=== PATIENT | female | born 1940 | race Asian ===

== ENCOUNTER 2016-10-04 08:41 | Outpatient (CLI) | payer OTHER ==
[~2016-10-04 08:41] MED LIST: CLONIDINE0.2 MG PO; COZAAR100 MG PO; FOLI1TAB26 PO; FURO40TA93 PO; GLIM4TAB PO; GLUCOPHAGE1000 MG PO; LABE200T31 PO; LASIX40 MG PO; LOSARTAN POT100 MG PO; METF100038 OR; MICRO-K10 MEQ PO; PLAVIX75 MG PO; SIMV40TA57 PO; ZOCOR40 MG PO
[2016-10-04 09:26] LABS: PLATELET COUNT 152 K/uL (152-353)
[2016-10-04 10:11] LABS: POTASSIUM 3.6 mmol/L (3.6-5.2)
== END 2016-10-04 19:36 | disposition home or self-care (01) ==
LOC: LABW 08:41
PROVIDERS: Internal Medicine Nephrology
DX: I12.9 Hypertensive chronic kidney disease with stage 1 through stage 4 chronic kidney disease, or unspecified chronic kidney disease (principal); N18.4 Chronic kidney disease, stage 4 (severe); E55.9 Vitamin D deficiency, unspecified
CPT/HCPCS: 36415; 80053; 81000; 82306; 82570; 83970; 84100; 84155; 85027

== ENCOUNTER 2016-10-30 09:47 | Outpatient (CLI) | payer OTHER | END 2016-10-30 19:24 | disposition home or self-care (01) | LOC: MAMMO 09:47 | DX: Z12.31 Encounter for screening mammogram for malignant neoplasm of breast (principal) | CPT/HCPCS: G0202-TC ==

== ENCOUNTER 2016-11-01 09:17 | Outpatient (CLI) | payer OTHER ==
[2016-11-01 09:35] LABS: POTASSIUM 3.2 mmol/L (3.6-5.2)
== END 2016-11-01 19:04 | disposition home or self-care (01) ==
LOC: LABW 09:17
PROVIDERS: Internal Medicine Nephrology
DX: N17.8 Other acute kidney failure (principal)
CPT/HCPCS: 36415; 80048

== ENCOUNTER 2016-11-10 13:34 | Outpatient (CLI) | payer OTHER | END 2016-11-10 19:12 | disposition home or self-care (01) | LOC: RAD 13:34 | DX: M79.604 Pain in right leg (principal) ==

== ENCOUNTER 2017-02-07 10:28 | Outpatient (CLI) | payer OTHER | END 2017-02-07 12:00 | disposition home or self-care (01) | LOC: US 10:28 | DX: M79.605 Pain in left leg (principal); M79.604 Pain in right leg ==

== ENCOUNTER 2017-02-08 09:20 | Outpatient (CLI) | payer OTHER ==
[2017-02-08 10:52] LABS: PLATELET COUNT 140 K/uL (152-353)
== END 2017-02-08 10:20 | disposition home or self-care (01) ==
LOC: LABW 09:20
PROVIDERS: Internal Medicine
DX: E11.9 Type 2 diabetes mellitus without complications (principal)
CPT/HCPCS: 36415; 80048; 80061; 80076; 81000; 82043; 82570; 83036; 84100; 84443; 85027

== ENCOUNTER 2017-04-05 09:57 | Outpatient (CLI) | payer OTHER ==
[2017-04-05 10:21] LABS: PLATELET COUNT 175 K/uL (152-353)
[2017-04-05 10:54] LABS: POTASSIUM 3.6 mmol/L (3.6-5.2)
== END 2017-04-05 21:53 | disposition home or self-care (01) ==
LOC: LABW 09:57
PROVIDERS: Internal Medicine Nephrology
DX: I12.9 Hypertensive chronic kidney disease with stage 1 through stage 4 chronic kidney disease, or unspecified chronic kidney disease (principal); N18.4 Chronic kidney disease, stage 4 (severe); E55.9 Vitamin D deficiency, unspecified
CPT/HCPCS: 36415; 80053; 81000; 82306; 82570; 83970; 84100; 84155; 85027

== ENCOUNTER 2017-09-26 09:52 | Outpatient (CLI) | payer OTHER ==
[2017-09-26 10:28] LABS: PLATELET COUNT 164 K/uL (152-353)
[2017-09-26 10:46] LABS: POTASSIUM 3.3 mmol/L (3.6-5.2)
== END 2017-09-27 09:52 | disposition home or self-care (01) ==
LOC: LABW 09:52
PROVIDERS: Internal Medicine Nephrology
DX: N18.4 Chronic kidney disease, stage 4 (severe) (principal); E11.9 Type 2 diabetes mellitus without complications; E55.9 Vitamin D deficiency, unspecified
CPT/HCPCS: 36415; 80053; 81000; 82570; 82652; 83970; 84100; 84155; 85027

== ENCOUNTER 2017-10-25 09:14 | Outpatient (CLI) | payer OTHER ==
[2017-10-25 09:50] LABS: PLATELET COUNT 151 K/uL (152-353)
[2017-10-25 10:19] LABS: POTASSIUM 3.6 mmol/L (3.6-5.2)
== END 2017-10-25 19:28 | disposition home or self-care (01) ==
LOC: LABW 09:14
PROVIDERS: Internal Medicine
DX: E11.9 Type 2 diabetes mellitus without complications (principal)
CPT/HCPCS: 36415; 80053; 80061; 81000; 82043; 82570; 83036; 84439; 84443; 85027

== ENCOUNTER 2017-11-01 08:52 | Outpatient (CLI) | payer OTHER | END 2017-11-01 22:04 | disposition home or self-care (01) | LOC: MAMMO 08:52 | DX: Z12.31 Encounter for screening mammogram for malignant neoplasm of breast (principal) ==

== ENCOUNTER 2018-01-21 09:12 | Outpatient (CLI) | payer OTHER ==
[2018-01-21 09:36] LABS: PLATELET COUNT 150 K/uL (152-353)
[2018-01-21 09:55] LABS: POTASSIUM 3.7 mmol/L (3.6-5.2)
== END 2018-01-21 20:15 | disposition home or self-care (01) ==
LOC: LABW 09:12
PROVIDERS: Internal Medicine Nephrology
DX: N18.4 Chronic kidney disease, stage 4 (severe) (principal); E11.9 Type 2 diabetes mellitus without complications; E55.9 Vitamin D deficiency, unspecified
CPT/HCPCS: 36415; 80053; 81000; 82570; 82652; 83970; 84100; 84155; 85027

== ENCOUNTER 2018-04-26 09:36 | Outpatient (CLI) | payer OTHER ==
[2018-04-26 10:00] LABS: PLATELET COUNT 151 K/uL (152-353)
[2018-04-26 11:41] LABS: POTASSIUM 3.5 mmol/L (3.6-5.2)
== END 2018-04-26 19:21 | disposition home or self-care (01) ==
LOC: LABW 09:36
PROVIDERS: Internal Medicine Nephrology
DX: Z01.818 Encounter for other preprocedural examination (principal); N18.4 Chronic kidney disease, stage 4 (severe); E11.9 Type 2 diabetes mellitus without complications; E55.9 Vitamin D deficiency, unspecified
CPT/HCPCS: 36415; 80053; 81000; 82043; 82306; 82570; 83970; 84100; 85027

== ENCOUNTER 2018-06-03 09:08 | Outpatient (CLI) | payer OTHER ==
[2018-06-03 09:50] LABS: PLATELET COUNT 148 K/uL (152-353)
[2018-06-03 09:56] LABS: POTASSIUM 3.2 mmol/L (3.6-5.2)
== END 2018-06-03 19:42 | disposition home or self-care (01) ==
LOC: LABW 09:08
PROVIDERS: Internal Medicine Nephrology
DX: N18.4 Chronic kidney disease, stage 4 (severe) (principal); E11.9 Type 2 diabetes mellitus without complications; E55.9 Vitamin D deficiency, unspecified
CPT/HCPCS: 36415; 80053; 81000; 82570; 82652; 83970; 84100; 84155; 85027

== ENCOUNTER 2018-09-03 11:33 | Outpatient (CLI) | payer OTHER, MEDICARE | END 2018-09-03 23:15 | disposition home or self-care (01) | LOC: RAD 11:33 | DX: M25.552 Pain in left hip (principal); M54.2 Cervicalgia; M54.5 Low back pain ==

== ENCOUNTER 2018-09-19 12:21 | Emergency (ER) | payer OTHER ==
[~2018-09-19] VITALS: Ht 165.1 cm; Wt 76.2 kg
[2018-09-19 12:53] LABS: PLATELET COUNT 165 K/uL (152-353)
[2018-09-19 13:00] LABS: POTASSIUM 4.6 mmol/L (3.6-5.2); SODIUM 138 mmol/L (136-145)
[2018-09-19] MEDS ORDERED: CLONIDINE0.3 MG PO (15:34)
[2018-09-19] MEDS ORDERED: FURO40TA93 PO (15:35)
[2018-09-19] MEDS ORDERED: K-TAB10 MEQ PO (15:36)
[2018-09-19] MEDS ORDERED: AMLODIPINE BESYLATE PO (15:36)
[2018-09-19] MEDS ORDERED: LABETALOL200 MG PO (15:37)
[2018-09-19] MEDS ORDERED: CLOP75TA2 PO (15:37)
[2018-09-19] MEDS ORDERED: MELOXICAM7.5 MG PO (15:38)
[2018-09-19] MEDS ORDERED: CYCLOBENZAPRINE5 MG PO (15:38)
[2018-09-19] MEDS ORDERED: SIMV40TA57 (15:38)
[2018-09-19] MEDS ORDERED: NEURONTIN 100M100 MG PO (15:39)
[2018-09-19] MEDS ORDERED: GLIM4TAB PO (15:39)
[2018-09-19] MEDS ORDERED: ASPIR-8181 MG PO (15:41)
[2018-09-19 16:38] VITALS: BP 167/86; TEMP 97.9
== END 2018-09-19 16:38 | disposition short-term general hospital (02) ==
LOC: ED 12:21
PROVIDERS: Family Medicine
DX: R07.89 Other chest pain (principal); I44.7 Left bundle-branch block, unspecified
CPT/HCPCS: 36415; 80053; 81000; 82550; 82553; 83880; 84484; 85027; 93005; 99284

== ENCOUNTER 2018-09-19 16:47 | Outpatient (CLI) | payer OTHER ==
[~2018-09-19 16:47] MED LIST changes: +AMLODIPINE BESYLATE PO; +ASPIR-8181 MG PO; +CLONIDINE0.3 MG PO; +CLOP75TA2 PO; +CYCLOBENZAPRINE5 MG PO; +K-TAB10 MEQ PO; +LABETALOL200 MG PO; +MELOXICAM7.5 MG PO; +NEURONTIN 100M100 MG PO; +SIMV40TA57
== END 2018-09-19 17:26 | disposition short-term general hospital (02) ==
LOC: AMB 16:47
DX: R07.89 Other chest pain (principal); I44.7 Left bundle-branch block, unspecified
CPT/HCPCS: A0425; A0429

== ENCOUNTER 2019-01-13 08:19 | Outpatient (CLI) | payer OTHER ==
[2019-01-13 08:46] LABS: PLATELET COUNT 174 K/uL (152-353)
[2019-01-13 09:05] LABS: POTASSIUM 3.1 mmol/L (3.6-5.2)
== END 2019-01-13 23:34 | disposition home or self-care (01) ==
LOC: LABW 08:19
PROVIDERS: Internal Medicine Nephrology
DX: E11.9 Type 2 diabetes mellitus without complications (principal); G35 Multiple sclerosis; I63.9 Cerebral infarction, unspecified; M19.90 Unspecified osteoarthritis, unspecified site; N18.3 Chronic kidney disease, stage 3 (moderate); D63.1 Anemia in chronic kidney disease
CPT/HCPCS: 36415; 80053; 80061; 81000; 82306; 82570; 82607; 82728; 82746; 83540; 83550; 83970; 84100; 84155; 85027

== ENCOUNTER 2019-03-14 09:25 | Outpatient (CLI) | payer OTHER | END 2019-03-14 21:46 | disposition home or self-care (01) | LOC: MAMMO 09:25 | DX: Z12.31 Encounter for screening mammogram for malignant neoplasm of breast (principal) ==

== ENCOUNTER 2019-05-07 08:21 | Outpatient (CLI) | payer OTHER ==
[2019-05-07 09:01] LABS: POTASSIUM 3.6 mmol/L (3.6-5.2)
[2019-05-07 09:50] LABS: PLATELET COUNT 138 K/uL (152-353)
== END 2019-05-07 23:27 | disposition home or self-care (01) ==
LOC: LABW 08:21
PROVIDERS: Internal Medicine
DX: Z00.00 Encounter for general adult medical examination without abnormal findings (principal); I10 Essential (primary) hypertension; E11.9 Type 2 diabetes mellitus without complications
CPT/HCPCS: 36415; 80053; 80061; 81000; 83036; 84439; 84443; 85027

== ENCOUNTER 2019-05-20 09:13 | Outpatient (CLI) | payer OTHER ==
[2019-05-20 09:55] LABS: PLATELET COUNT 147 K/uL (152-353)
[2019-05-20 10:13] LABS: POTASSIUM 4.1 mmol/L (3.6-5.2)
== END 2019-05-20 20:33 | disposition home or self-care (01) ==
LOC: LABW 09:13
PROVIDERS: Internal Medicine Nephrology
DX: E11.9 Type 2 diabetes mellitus without complications (principal); G35 Multiple sclerosis; I63.9 Cerebral infarction, unspecified; M19.90 Unspecified osteoarthritis, unspecified site; D64.89 Other specified anemias; E53.8 Deficiency of other specified B group vitamins; N18.3 Chronic kidney disease, stage 3 (moderate)
CPT/HCPCS: 36415; 80053; 81000; 82306; 82570; 82607; 82728; 82746; 83036; 83540; 83550; 83970; 84100; 84155; 85027

== ENCOUNTER 2019-05-30 13:20 | Outpatient (CLI) | payer OTHER | END 2019-05-30 19:13 | disposition home or self-care (01) | LOC: RAD 13:20 | DX: Z13.820 Encounter for screening for osteoporosis (principal); N95.8 Other specified menopausal and perimenopausal disorders ==

== ENCOUNTER 2019-09-12 09:51 | Outpatient (CLI) | payer OTHER ==
[2019-09-12 10:21] LABS: PLATELET COUNT 153 K/uL (152-353)
[2019-09-12 11:27] LABS: POTASSIUM 3.5 mmol/L (3.6-5.2)
== END 2019-09-12 19:10 | disposition home or self-care (01) ==
LOC: LABW 09:51
PROVIDERS: Internal Medicine Nephrology
DX: E11.9 Type 2 diabetes mellitus without complications (principal); G35 Multiple sclerosis; I63.9 Cerebral infarction, unspecified; M19.90 Unspecified osteoarthritis, unspecified site; D64.89 Other specified anemias; N18.3 Chronic kidney disease, stage 3 (moderate); E53.8 Deficiency of other specified B group vitamins
CPT/HCPCS: 36415; 80053; 81000; 82306; 82570; 82607; 82728; 82746; 83036; 83540; 83550; 83970; 84100; 84155; 85027

== ENCOUNTER 2019-09-17 14:44 | Outpatient (CLI) | payer OTHER | END 2019-09-17 19:25 | disposition home or self-care (01) | LOC: RAD 14:44 | DX: M17.11 Unilateral primary osteoarthritis, right knee (principal) ==

== ENCOUNTER 2020-01-14 08:14 | Outpatient (CLI) | payer OTHER ==
[2020-01-14 09:12] LABS: POTASSIUM 3.4 mmol/L (3.6-5.2)
[2020-01-14 09:55] LABS: PLATELET COUNT 146 K/uL (152-353)
== END 2020-01-14 22:02 | disposition home or self-care (01) ==
LOC: LABW 08:14
PROVIDERS: Internal Medicine Nephrology
DX: E11.9 Type 2 diabetes mellitus without complications (principal); G35 Multiple sclerosis; I63.9 Cerebral infarction, unspecified; M19.90 Unspecified osteoarthritis, unspecified site; D64.89 Other specified anemias; E53.8 Deficiency of other specified B group vitamins; N18.3 Chronic kidney disease, stage 3 (moderate)
CPT/HCPCS: 36415; 80053; 80061; 81000; 82043; 82306; 82570; 82607; 82728; 82746; 83036; 83540; 83550; 83970; 84100; 84155; 84439; 84443; 85027

== ENCOUNTER 2020-05-18 08:31 | Outpatient (CLI) | payer OTHER ==
[2020-05-18 09:23] LABS: POTASSIUM 3.4 mmol/L (3.6-5.2)
[2020-05-18 09:54] LABS: PLATELET COUNT 145 K/uL (152-353)
== END 2020-05-18 23:29 | disposition home or self-care (01) ==
LOC: LABW 08:31
PROVIDERS: Internal Medicine Nephrology
DX: E11.9 Type 2 diabetes mellitus without complications (principal); G35 Multiple sclerosis; I63.9 Cerebral infarction, unspecified; M19.90 Unspecified osteoarthritis, unspecified site; D64.89 Other specified anemias; E53.8 Deficiency of other specified B group vitamins; E55.9 Vitamin D deficiency, unspecified
CPT/HCPCS: 36415; 80053; 81000; 82306; 82570; 82607; 82728; 82746; 83540; 83550; 83970; 84100; 84155; 85027

== ENCOUNTER 2020-08-17 08:48 | Outpatient (CLI) | payer OTHER ==
[2020-08-17 09:32] LABS: POTASSIUM 3.1 mmol/L (3.6-5.2)
[2020-08-17 09:33] LABS: PLATELET COUNT 129 K/uL (152-353)
== END 2020-08-17 19:57 | disposition home or self-care (01) ==
LOC: LABW 08:48
PROVIDERS: ATTEND Internal Medicine Nephrology
DX: E11.9 Type 2 diabetes mellitus without complications (principal); G35 Multiple sclerosis; I63.9 Cerebral infarction, unspecified; M19.90 Unspecified osteoarthritis, unspecified site
CPT/HCPCS: 36415; 80053; 81000; 82306; 82570; 82607; 82728; 82746; 83036; 83540; 83550; 83970; 84100; 84155; 85027

== ENCOUNTER 2020-11-12 09:17 | Outpatient (CLI) | payer OTHER ==
[2020-11-12 09:42] LABS: PLATELET COUNT 149 K/uL (152-353)
[2020-11-12 10:00] LABS: POTASSIUM 3.5 mmol/L (3.6-5.2)
== END 2020-11-12 21:47 | disposition home or self-care (01) ==
LOC: LABW 09:17
PROVIDERS: ATTEND Internal Medicine Nephrology
DX: E11.9 Type 2 diabetes mellitus without complications (principal); G35 Multiple sclerosis; I63.89 Other cerebral infarction; M19.90 Unspecified osteoarthritis, unspecified site; D64.89 Other specified anemias; E53.8 Deficiency of other specified B group vitamins; N18.30 Chronic kidney disease, stage 3 unspecified
CPT/HCPCS: 36415; 80053; 80061; 81000; 82306; 82570; 82607; 82728; 82746; 83036; 83540; 83550; 83970; 84100; 84155; 85027

== ENCOUNTER 2021-01-31 08:38 | Outpatient (CLI) | payer OTHER ==
[2021-01-31 09:39] LABS: PLATELET COUNT 130 K/uL (152-353)
[2021-01-31 09:46] LABS: POTASSIUM 3.4 mmol/L (3.6-5.2)
== END 2021-01-31 19:22 | disposition home or self-care (01) ==
LOC: LABW 08:38
PROVIDERS: ATTEND Internal Medicine
DX: E11.9 Type 2 diabetes mellitus without complications (principal)
CPT/HCPCS: 36415; 80053; 80061; 81000; 83036; 84439; 84443; 85027

== ENCOUNTER 2021-02-08 13:43 | Outpatient (CLI) | payer OTHER | END 2021-02-08 20:39 | disposition home or self-care (01) | LOC: MAMMO 13:43 | PROVIDERS: ATTEND Internal Medicine | DX: Z12.31 Encounter for screening mammogram for malignant neoplasm of breast (principal) ==

== ENCOUNTER 2021-03-22 08:37 | Outpatient (CLI) | payer OTHER ==
[2021-03-22 09:12] LABS: PLATELET COUNT 132 K/uL (152-353)
[2021-03-22 09:44] LABS: POTASSIUM 3.1 mmol/L (3.6-5.2)
== END 2021-03-22 20:31 | disposition home or self-care (01) ==
LOC: LABW 08:37
PROVIDERS: ATTEND Internal Medicine Nephrology
DX: N18.4 Chronic kidney disease, stage 4 (severe) (principal); E55.9 Vitamin D deficiency, unspecified; E88.9 Metabolic disorder, unspecified; D64.9 Anemia, unspecified; E11.9 Type 2 diabetes mellitus without complications
CPT/HCPCS: 36415; 80053; 81000; 82043; 82306; 82570; 82607; 82728; 82746; 83036; 83540; 83550; 83970; 84100; 84155; 85027

== ENCOUNTER 2021-06-17 09:53 | Outpatient (CLI) | payer OTHER | END 2021-06-17 20:35 | disposition home or self-care (01) | LOC: RAD 09:53 | PROVIDERS: ATTEND Internal Medicine | DX: Z13.820 Encounter for screening for osteoporosis (principal); N95.8 Other specified menopausal and perimenopausal disorders ==

== ENCOUNTER 2021-07-05 16:21 | Outpatient (CLI) | payer OTHER ==
[2021-07-05 17:21] LABS: PLATELET COUNT 135 K/uL (152-353)
[2021-07-05 17:41] LABS: POTASSIUM 3.5 mmol/L (3.6-5.2)
== END 2021-07-05 18:55 | disposition home or self-care (01) ==
LOC: LAB 16:21
PROVIDERS: ATTEND Internal Medicine
DX: E11.9 Type 2 diabetes mellitus without complications (principal)
CPT/HCPCS: 80053; 80061; 81000; 83036; 84439; 84443; 85027

== ENCOUNTER 2021-07-19 09:16 | Outpatient (CLI) | payer OTHER ==
[2021-07-19 09:43] LABS: PLATELET COUNT 128 K/uL (152-353)
[2021-07-19 10:12] LABS: POTASSIUM 3.6 mmol/L (3.6-5.2)
== END 2021-07-19 19:09 | disposition home or self-care (01) ==
LOC: LABW 09:16
PROVIDERS: ATTEND Internal Medicine Nephrology
DX: N18.4 Chronic kidney disease, stage 4 (severe) (principal); Z79.899 Other long term (current) drug therapy; D50.8 Other iron deficiency anemias; E11.65 Type 2 diabetes mellitus with hyperglycemia; E55.9 Vitamin D deficiency, unspecified; E78.2 Mixed hyperlipidemia
CPT/HCPCS: 36415; 80053; 80061; 81000; 82306; 82570; 82607; 82728; 82746; 83036; 83540; 83550; 83970; 84100; 84155; 84439; 84443; 85027

== ENCOUNTER 2021-09-26 16:00 | Inpatient (IN) | payer OTHER ==
[~2021-09-26] VITALS: Ht 167.6 cm; Wt 61.7 kg
[~2021-09-26 16:00] MED LIST changes: +CALCITRIOL0.5 MCG PO; +DOK100 MG PO; +LABETALOL HYDR300 MG PO; +PAROXETINE HYDR20 MG PO
[2021-09-26 20:00] VITALS: BP 134/77; TEMP 99.1
[2021-09-27 18:15] VITALS: BP 146/60; TEMP 98.1; Ht 167.6 cm; Wt 61.7 kg
[2021-09-27 20:00] VITALS: BP 148/70; TEMP 99.3
[2021-09-28 08:00] VITALS: BP 147/61; TEMP 99.6
[2021-09-28 20:41] VITALS: BP 148/67; TEMP 99
[2021-09-29 08:00] VITALS: BP 88/49; TEMP 98.8
[2021-09-29 20:28] VITALS: BP 142/65; TEMP 98.3
[2021-10-01 01:33] LABS: POTASSIUM 3.6 mmol/L (3.6-5.2)
[2021-10-02 08:00] VITALS: BP 136/69; TEMP 97.9
[2021-10-02 20:00] VITALS: BP 153/76; TEMP 99.4
[2021-10-03 08:00] VITALS: BP 150/70; TEMP 97.6
[2021-10-03 20:42] VITALS: BP 187/88; TEMP 98.9
[2021-10-04 08:00] VITALS: BP 158/74; TEMP 97.6
[2021-10-04 20:49] VITALS: BP 162/72; TEMP 98.6
[2021-10-05 20:00] VITALS: BP 146/76; TEMP 98.6
[2021-10-06 20:00] VITALS: BP 146/65; TEMP 99.5
[2021-10-07 20:00] VITALS: BP 174/79; TEMP 97.9
[2021-10-08 08:00] VITALS: BP 144/68; TEMP 98.5
[2021-10-08 20:47] VITALS: BP 142/67; TEMP 99
[2021-10-09 20:41] VITALS: BP 126/55; TEMP 99.8
[2021-10-10 08:00] VITALS: BP 149/61; TEMP 98.6
[2021-10-10 15:25] LABS: POTASSIUM 3.1 mmol/L (3.6-5.2)
[2021-10-10 20:00] VITALS: BP 170/76; TEMP 99.2
[2021-10-11 20:00] VITALS: BP 152/69; TEMP 99.1
[2021-10-12 08:00] VITALS: BP 152/70; TEMP 98.3
[2021-10-12 20:21] VITALS: BP 129/81; TEMP 98.6
[2021-10-13 08:37] VITALS: BP 142/71; TEMP 98.5
[2021-10-13 20:20] VITALS: BP 153/64; TEMP 98.5
[2021-10-14 12:53] LABS: PLATELET COUNT 132 K/uL (152-353)
[2021-10-14 13:08] LABS: POTASSIUM 3.2 mmol/L (3.6-5.2)
[2021-10-14 20:00] VITALS: BP 134/87; TEMP 98.7
[2021-10-15 20:00] VITALS: BP 168/82; TEMP 99.1
[2021-10-16 08:00] VITALS: BP 163/71; TEMP 98.5
[2021-10-16 20:00] VITALS: BP 132/60; TEMP 98.7
[2021-10-17 09:17] VITALS: BP 149/75; TEMP 98.4
[2021-10-17 20:12] VITALS: BP 165/74; TEMP 98.9
[2021-10-18 08:00] VITALS: BP 149/66; TEMP 98.2
[2021-10-18 20:10] VITALS: BP 142/58; TEMP 98.5
[2021-10-19 20:00] VITALS: BP 162/69; TEMP 98.7
[2021-10-20 07:28] VITALS: BP 152/67; TEMP 98.7
[2021-10-20 20:00] VITALS: BP 149/61; TEMP 98.8
[2021-10-21 08:00] VITALS: BP 129/78; TEMP 99.2
[2021-10-21 20:11] VITALS: BP 166/82; TEMP 99.3
[2021-10-22 08:00] VITALS: BP 151/65; TEMP 98.5
[2021-10-22] MEDS ORDERED: CLON0.1T16 PO (08:45)
[2021-10-22] MEDS ORDERED: CLONIDINE HYDR0.1 M2 PO (10:52)
== END 2021-10-22 11:53 | disposition home health service (06) | DRG 57 ==
LOC: MED/SURG 16:00
PROVIDERS: Internal Medicine; Internal Medicine Endocrinology, Diabetes & Metabolism; ADMIT Internal Medicine; ATTEND Internal Medicine
DX: I69.354 Hemiplegia and hemiparesis following cerebral infarction affecting left non-dominant side (principal); E11.9 Type 2 diabetes mellitus without complications; R13.11 Dysphagia, oral phase; R13.12 Dysphagia, oropharyngeal phase; R26.2 Difficulty in walking, not elsewhere classified; M62.81 Muscle weakness (generalized); Z74.1 Need for assistance with personal care; R26.81 Unsteadiness on feet; R27.9 Unspecified lack of coordination; N18.4 Chronic kidney disease, stage 4 (severe); I12.9 Hypertensive chronic kidney disease with stage 1 through stage 4 chronic kidney disease, or unspecified chronic kidney disease; D64.9 Anemia, unspecified; K21.9 Gastro-esophageal reflux disease without esophagitis; I25.10 Atherosclerotic heart disease of native coronary artery without angina pectoris
CPT/HCPCS: 80053; 85027; 87081; 87635; G0283-GO; U0003

== ENCOUNTER 2021-10-31 12:16 | Outpatient (CLI) | payer OTHER ==
[~2021-10-31 12:16] MED LIST changes: +CLON0.1T16 PO; +CLONIDINE HYDR0.1 M2 PO
[2021-10-31 12:59] LABS: PLATELET COUNT 190 K/uL (152-353)
[2021-10-31 13:51] LABS: POTASSIUM 3.2 mmol/L (3.6-5.2)
== END 2021-10-31 19:55 | disposition home or self-care (01) ==
LOC: LABW 12:16
PROVIDERS: ATTEND Internal Medicine
DX: E11.9 Type 2 diabetes mellitus without complications (principal); I10 Essential (primary) hypertension
CPT/HCPCS: 36415; 80053; 80061; 81000; 83036; 84439; 84443; 85027

== ENCOUNTER 2022-01-17 21:46 | Observation (INO) | payer OTHER ==
[~2022-01-17] VITALS: Ht 167.6 cm; Wt 58.1 kg
[2022-01-17 21:50] VITALS: BP 216/111; TEMP 98.1
[2022-01-17 22:27] LABS: PLATELET COUNT 128 K/uL (152-353)
[2022-01-17 22:37] LABS: POTASSIUM 2.9 mmol/L (3.6-5.2)
[2022-01-17 22:49] LABS: PARTIAL THROMBOPLASTIN TIME 25.1 SECONDS (24.5-33.6)
[2022-01-17 22:50] VITALS: BP 223/109
[2022-01-17 23:00] VITALS: BP 209/93
[2022-01-17 23:20] VITALS: BP 197/95
[2022-01-17 23:30] VITALS: BP 196/86
[2022-01-18] VITALS (10 sets, daily range): BP systolic 114–211; BP diastolic 50–97; TEMP 98.1–98.5; Ht 167.6 cm; Wt 58.1 kg
[2022-01-18] MEDS ORDERED: CLONIDINE HYDR0.1 M2 PO (04:56)
[2022-01-18 10:44] LABS: POTASSIUM 3.3 mmol/L (3.6-5.2)
[2022-01-19 00:01] VITALS: BP 141/73; TEMP 97.7
[2022-01-19 04:00] VITALS: BP 152/69; TEMP 97.9
[2022-01-19 05:47] LABS: PLATELET COUNT 116 K/uL (152-353)
[2022-01-19 05:54] LABS: POTASSIUM 3.4 mmol/L (3.6-5.2)
[2022-01-19 08:00] VITALS: BP 150/80; TEMP 98.1
[2022-01-19] MEDS ORDERED: CLONIDINE HYDR0.1 M2 PO (08:55)
[2022-01-19] MEDS ORDERED: GLIM4TAB PO (08:55)
[2022-01-19] MEDS ORDERED: FURO20TA67 PO (08:56)
[2022-01-19] MEDS ORDERED: POT CHLORIDE10 MEQ PO (08:58)
== END 2022-01-19 11:00 | disposition home or self-care (01) ==
LOC: ED 21:46 → MED/SURG 01-18 00:01
PROVIDERS: ADMIT Emergency Medicine; ATTEND Internal Medicine
DX: I16.0 Hypertensive urgency (principal); E78.49 Other hyperlipidemia; Z85.3 Personal history of malignant neoplasm of breast; M41.80 Other forms of scoliosis, site unspecified; M15.8 Other polyosteoarthritis; Z86.73 Personal history of transient ischemic attack (TIA), and cerebral infarction without residual deficits; M23.52 Chronic instability of knee, left knee; E11.22 Type 2 diabetes mellitus with diabetic chronic kidney disease; I12.9 Hypertensive chronic kidney disease with stage 1 through stage 4 chronic kidney disease, or unspecified chronic kidney disease; N18.32 Chronic kidney disease, stage 3b; R74.8 Abnormal levels of other serum enzymes; R51.9 Headache, unspecified; Z79.899 Other long term (current) drug therapy
CPT/HCPCS: 36415; 80048; 80053; 80307; 81002; 82948; 83880; 84484; 85027; 85610; 85730; 87635; 93005; 96365; 96372; 96374; 96375; 99220; 99284; G0378; J0360; J1650; J1940; U0003

== ENCOUNTER 2022-03-06 11:00 | Emergency (ER) | payer OTHER ==
[~2022-03-06] VITALS: Ht 167.6 cm; Wt 58.1 kg
[~2022-03-06 11:00] MED LIST changes: +FURO20TA67 PO; +POT CHLORIDE10 MEQ PO
[2022-03-06 11:05] VITALS: TEMP 98.9
[2022-03-06 13:35] VITALS: BP 174/88
== END 2022-03-06 13:35 | disposition home or self-care (01) ==
LOC: ED 11:00
DX: S00.03XA Contusion of scalp, initial encounter (principal); S40.022A Contusion of left upper arm, initial encounter; W05.0XXA Fall from non-moving wheelchair, initial encounter; Y92.89 Other specified places as the place of occurrence of the external cause
CPT/HCPCS: 99283

== ENCOUNTER 2022-03-23 15:36 | Outpatient (CLI) | payer OTHER | END 2022-03-23 21:05 | disposition home or self-care (01) | LOC: LAB 15:36 | PROVIDERS: ATTEND Internal Medicine | DX: R80.8 Other proteinuria (principal) | CPT/HCPCS: 84166 ==

== ENCOUNTER 2022-03-26 22:48 | Inpatient (IN) | payer OTHER ==
[~2022-03-26] VITALS: Ht 165.1 cm; Wt 60.1 kg
[2022-03-26 23:05] VITALS: BP 126/76; TEMP 98.5
[2022-03-27] VITALS (9 sets, daily range): BP systolic 126–178; BP diastolic 67–94; TEMP 98.2–98.8; Ht 165.1 cm; Wt 60.1 kg
[2022-03-27 01:41] LABS: PLATELET COUNT 204 K/uL (152-353)
[2022-03-27 01:57] LABS: PARTIAL THROMBOPLASTIN TIME 23.2 SECONDS (24.5-33.6)
[2022-03-27 02:02] LABS: POTASSIUM 3.6 mmol/L (3.6-5.2)
[2022-03-27] MEDS ORDERED: K-TABS10 MEQ PO (10:53)
[2022-03-27] MEDS ORDERED: GLIM4TAB PO (10:54)
[2022-03-27] MEDS ORDERED: FURO40TA93 PO (10:55)
[2022-03-27] MEDS ORDERED: AMLODIPINE 10 MG PO (10:56)
[2022-03-28] VITALS (7 sets, daily range): BP systolic 104–185; BP diastolic 59–92; TEMP 97.7–99
[2022-03-28 14:56] LABS: PLATELET COUNT 132 K/uL (152-353)
[2022-03-28 15:05] LABS: POTASSIUM 2.8 mmol/L (3.6-5.2)
[2022-03-29] VITALS (7 sets, daily range): BP systolic 134–206; BP diastolic 65–104; TEMP 98.7–100.4
[2022-03-29 05:21] LABS: PLATELET COUNT 134 K/uL (152-353)
[2022-03-29 05:37] LABS: POTASSIUM 2.8 mmol/L (3.6-5.2)
[2022-03-30] VITALS (7 sets, daily range): BP systolic 145–186; BP diastolic 75–100; TEMP 98.4–99
[2022-03-31] VITALS (9 sets, daily range): BP systolic 160–186; BP diastolic 74–94; TEMP 97.3–98.3
[2022-04-01] VITALS: BP 145/73; TEMP 98.9
[2022-04-01 04:00] VITALS: BP 111/81; TEMP 98.1
[2022-04-01] MEDS ORDERED: LEVE5MLUD PO (08:31)
[2022-04-01] MEDS ORDERED: CLONIDINE HYDR0.1 M2 PO (08:33)
[2022-04-01 12:00] VITALS: BP 137/70; TEMP 98.5
== END 2022-04-01 12:38 | disposition home health service (06) | DRG 304 ==
LOC: ED 22:48 → MED/SURG 03-27 00:53
PROVIDERS: Internal Medicine; ADMIT Family Medicine; ATTEND Internal Medicine
DX: I16.1 Hypertensive emergency (principal); I63.511 Cerebral infarction due to unspecified occlusion or stenosis of right middle cerebral artery; I69.354 Hemiplegia and hemiparesis following cerebral infarction affecting left non-dominant side; G40.89 Other seizures; E78.49 Other hyperlipidemia; M15.8 Other polyosteoarthritis; R74.8 Abnormal levels of other serum enzymes; E11.22 Type 2 diabetes mellitus with diabetic chronic kidney disease; E11.65 Type 2 diabetes mellitus with hyperglycemia; I13.0 Hypertensive heart and chronic kidney disease with heart failure and stage 1 through stage 4 chronic kidney disease, or unspecified chronic kidney disease; N18.32 Chronic kidney disease, stage 3b; I50.9 Heart failure, unspecified; E11.42 Type 2 diabetes mellitus with diabetic polyneuropathy; R62.7 Adult failure to thrive
CPT/HCPCS: 36415; 80048; 80053; 82150; 82550; 82948; 83690; 83880; 84443; 84484; 85027; 85610; 85730; 86140; 87040; 87635; 93005; 96360; 96361; 96367; 96374; 96375; 96376; 99284; A9576; J0360; J1953; J2060; J2270; J3480; J3490; U0003

== ENCOUNTER 2022-05-10 21:26 | Emergency (ER) | payer OTHER ==
[~2022-05-10] VITALS: Ht 165.1 cm; Wt 59.9 kg
[2022-05-10 21:26] VITALS: TEMP 98.1
[~2022-05-10 21:26] MED LIST changes: +AMLODIPINE 10 MG PO; +K-TABS10 MEQ PO; +LEVE5MLUD PO
[2022-05-10 21:54] LABS: PLATELET COUNT 154 K/uL (152-353)
[2022-05-10 22:09] LABS: POTASSIUM 3.1 mmol/L (3.6-5.2)
[2022-05-10 22:18] LABS: PARTIAL THROMBOPLASTIN TIME 25.2 SECONDS (24.5-33.6)
[2022-05-11 01:00] VITALS: BP 177/83
== END 2022-05-11 01:00 | disposition short-term general hospital (02) ==
LOC: ED 21:26
PROVIDERS: Emergency Medicine
DX: I50.1 Left ventricular failure, unspecified (principal); Z11.52 Encounter for screening for COVID-19
CPT/HCPCS: 36415; 36600; 80053; 82805; 83605; 83880; 84443; 84484; 85027; 85379; 85610; 85730; 87040; 87502; 87635; 93005; 96365; 96368; 99284; J0360; J1644; J1940; U0003

== ENCOUNTER 2022-06-20 13:35 | Emergency (ER) | payer OTHER ==
[~2022-06-20] VITALS: Ht 165.1 cm; Wt 59.9 kg
[2022-06-20 13:35] VITALS: TEMP 97.9
[~2022-06-20 13:35] MED LIST changes: -SIMV40TA57
[2022-06-20 14:28] LABS: PLATELET COUNT 113 K/uL (152-353)
[2022-06-20 15:07] LABS: POTASSIUM 2.9 mmol/L (3.6-5.2)
[2022-06-20 18:00] VITALS: BP 164/85
[2022-06-21] MEDS ORDERED: CLOP75TA2 PO (13:14)
[2022-06-21] MEDS ORDERED: CARV25TA PO (13:16)
[2022-06-21] MEDS ORDERED: ENTRESTO 49-511 TAB PO (13:16)
[2022-06-21] MEDS ORDERED: PARO20TA3 PO (13:17)
[2022-06-21] MEDS ORDERED: AMLODIPINE BESYLATE PO (13:18)
[2022-06-21] MEDS ORDERED: CLON0.1T16 PO (13:25)
[2022-06-21] MEDS ORDERED: GLIM4TAB PO (13:26)
[2022-06-21] MEDS ORDERED: LEVE5MLUD PO (13:26)
[2022-06-21] MEDS ORDERED: K-TABS10 MEQ PO (13:28)
[2022-06-21] MEDS ORDERED: ASPIRIN81 M2 PO (13:28)
[2022-06-21] MEDS ORDERED: FURO20TA67 PO (13:28)
== END 2022-06-20 18:07 | disposition home or self-care (01) ==
LOC: ED 13:35
PROVIDERS: Emergency Medicine
DX: R56.9 Unspecified convulsions (principal); E87.6 Hypokalemia; D64.89 Other specified anemias
CPT/HCPCS: 80053; 80307; 81002; 84484; 85027; 93005; 96365; 96366; 99283; 99284; J0360; J1953

== ENCOUNTER 2022-06-20 22:13 | Observation (INO) | payer OTHER ==
[~2022-06-20] VITALS: Ht 165.1 cm; Wt 60.5 kg
[2022-06-20 22:18] VITALS: BP 191/95; TEMP 100.5
[2022-06-20 22:30] VITALS: BP 164/97
[2022-06-20 23:00] VITALS: BP 181/91
[2022-06-20 23:30] VITALS: BP 192/96
[2022-06-21] VITALS (10 sets, daily range): BP systolic 161–188; BP diastolic 79–103; TEMP 96.3–100.5; Ht 165.1 cm; Wt 60.5 kg
[2022-06-21] LABS: PLATELET COUNT 119 K/uL (152-353)
[2022-06-21 00:03] LABS: POTASSIUM 3.4 mmol/L (3.6-5.2)
[2022-06-21] MEDS ORDERED: CLOP75TA2 PO (13:14)
[2022-06-21] MEDS ORDERED: ENTRESTO 49-511 TAB PO (13:16)
[2022-06-21] MEDS ORDERED: CARV25TA PO (13:16)
[2022-06-21] MEDS ORDERED: PARO20TA3 PO (13:17)
[2022-06-21] MEDS ORDERED: AMLODIPINE BESYLATE PO (13:18)
[2022-06-21 13:19] LABS: POTASSIUM 3.1 mmol/L (3.6-5.2)
[2022-06-21] MEDS ORDERED: CLON0.1T16 PO (13:25)
[2022-06-21] MEDS ORDERED: LEVE5MLUD PO (13:26)
[2022-06-21] MEDS ORDERED: GLIM4TAB PO (13:26)
[2022-06-21] MEDS ORDERED: FURO20TA67 PO (13:28)
[2022-06-21] MEDS ORDERED: ASPIRIN81 M2 PO (13:28)
[2022-06-21] MEDS ORDERED: K-TABS10 MEQ PO (13:28)
[2022-06-21 13:34] LABS: PLATELET COUNT 126 K/uL (152-353)
[2022-06-22 00:27] VITALS: BP 166/87; TEMP 98.6
[2022-06-22 04:00] VITALS: BP 166/72; TEMP 98
[2022-06-22 04:20] LABS: PLATELET COUNT 113 K/uL (152-353)
[2022-06-22 04:41] LABS: POTASSIUM 3.8 mmol/L (3.6-5.2)
[2022-06-22 08:00] VITALS: BP 156/78; TEMP 99.2
[2022-06-22 12:00] VITALS: BP 150/72; TEMP 99
[2022-06-22] MEDS ORDERED: LEVE5MLUD PO (13:57)
== END 2022-06-22 15:15 | disposition home or self-care (01) ==
LOC: ED 22:13 → MED/SURG 06-21 00:30
PROVIDERS: ADMIT Emergency Medicine; ATTEND Internal Medicine
DX: G40.919 Epilepsy, unspecified, intractable, without status epilepticus (principal); Z86.73 Personal history of transient ischemic attack (TIA), and cerebral infarction without residual deficits; I11.0 Hypertensive heart disease with heart failure; I50.9 Heart failure, unspecified; F32.89 Other specified depressive episodes; E87.6 Hypokalemia; E78.49 Other hyperlipidemia; M15.8 Other polyosteoarthritis; M41.80 Other forms of scoliosis, site unspecified; I13.0 Hypertensive heart and chronic kidney disease with heart failure and stage 1 through stage 4 chronic kidney disease, or unspecified chronic kidney disease; E11.22 Type 2 diabetes mellitus with diabetic chronic kidney disease; N18.32 Chronic kidney disease, stage 3b; E11.42 Type 2 diabetes mellitus with diabetic polyneuropathy
CPT/HCPCS: 36415; 51702; 80048; 80053; 82948; 83880; 84484; 85027; 87635; 93005; 96360; 96361; 96365; 96366; 96374; 96375; 96376; 99220; 99284; G0378; J0360; J1940; J3480; U0003

== ENCOUNTER 2022-07-12 11:48 | Outpatient (CLI) | payer OTHER ==
[~2022-07-12 11:48] MED LIST changes: +ASPIRIN81 M2 PO; +CARV25TA PO; +ENTRESTO 49-511 TAB PO; +PARO20TA3 PO
[2022-07-12 12:19] LABS: PLATELET COUNT 111 K/uL (152-353)
[2022-07-12 12:25] LABS: POTASSIUM 2.7 mmol/L (3.6-5.2)
== END 2022-07-12 19:00 | disposition home or self-care (01) ==
LOC: LAB 11:48
PROVIDERS: ATTEND Internal Medicine
DX: E11.9 Type 2 diabetes mellitus without complications (principal); N18.9 Chronic kidney disease, unspecified; D64.89 Other specified anemias; I50.9 Heart failure, unspecified; I63.9 Cerebral infarction, unspecified; I12.9 Hypertensive chronic kidney disease with stage 1 through stage 4 chronic kidney disease, or unspecified chronic kidney disease
CPT/HCPCS: 80053; 80061; 81002; 83036; 84439; 84443; 85027

== ENCOUNTER 2022-07-12 13:30 | Emergency (ER) | payer OTHER ==
[~2022-07-12] VITALS: Ht 165.1 cm; Wt 60.3 kg
[2022-07-12 13:30] VITALS: TEMP 98.4
[2022-07-12 14:31] LABS: PLATELET COUNT 133 K/uL (152-353)
[2022-07-12 17:56] VITALS: BP 169/106
== END 2022-07-12 18:00 | disposition short-term general hospital (02) ==
LOC: ED 13:30
PROVIDERS: Emergency Medicine Emergency Medical Services
DX: I21.4 Non-ST elevation (NSTEMI) myocardial infarction (principal); S00.83XA Contusion of other part of head, initial encounter; J18.9 Pneumonia, unspecified organism; M25.552 Pain in left hip; I10 Essential (primary) hypertension; I25.2 Old myocardial infarction; W07.XXXA Fall from chair, initial encounter; Y92.89 Other specified places as the place of occurrence of the external cause; Z11.52 Encounter for screening for COVID-19
CPT/HCPCS: 80053; 83735; 83880; 84484; 85027; 85610; 87040; 87502; 87635; 93005; 96360; 96361; 96365; 96372; 96375; 99284; J0696; J1650; J1940; U0003

== ENCOUNTER → 2022-07-28 | Emergency (ER) | payer OTHER ==
[~2022-07-28] VITALS: Ht 165.1 cm; Wt 60.3 kg
[2022-07-28 19:49] LABS: PLATELET COUNT 215 K/uL (152-353)
[2022-07-28 20:08] LABS: POTASSIUM 3.6 mmol/L (3.6-5.2)
[2022-07-28 20:11] LABS: PARTIAL THROMBOPLASTIN TIME 25.1 SECONDS (24.5-33.6)
[2022-07-28 21:25] VITALS: BP 155/72; TEMP 98.5
== END ==
LOC: ED 18:30
PROVIDERS: Family Medicine
DX: R07.89 Other chest pain (principal); R53.83 Other fatigue; E11.9 Type 2 diabetes mellitus without complications
CPT/HCPCS: 36415; 80053; 82550; 84484; 85027; 85610; 85730; 93005; 99284

== ENCOUNTER 2022-08-23 11:48 | Outpatient (CLI) | payer OTHER ==
[2022-08-23 12:04] LABS: PLATELET COUNT 127 K/uL (152-353)
[2022-08-23 12:10] LABS: POTASSIUM 3.3 mmol/L (3.6-5.2)
== END 2022-08-23 21:37 | disposition home or self-care (01) ==
LOC: LAB 11:48
PROVIDERS: ATTEND Internal Medicine
DX: N18.9 Chronic kidney disease, unspecified (principal); E11.9 Type 2 diabetes mellitus without complications
CPT/HCPCS: 80053; 83036; 85027

== ENCOUNTER 2022-09-08 15:54 | Observation (INO) | payer OTHER ==
[2022-09-08] VITALS (7 sets, daily range): BP systolic 173–193; BP diastolic 82–103; TEMP 98.2–98.7; Ht 167.6 cm; Wt 58.7 kg
[~2022-09-08] VITALS: Ht 167.6 cm; Wt 58.7 kg
[2022-09-08 16:46] LABS: PLATELET COUNT 145 K/uL (152-353)
[2022-09-08 16:48] LABS: POTASSIUM 2.8 mmol/L (3.6-5.2)
[2022-09-09 00:05] VITALS: BP 189/91; TEMP 98.4
[2022-09-09 07:24] VITALS: BP 115/39; BP 166/77; TEMP 98.3; TEMP 98.6
[2022-09-09 11:24] VITALS: BP 154/78; TEMP 98.3
[2022-09-09] MEDS ORDERED: VIMPAT50 MG PO (11:38)
[2022-09-09] MEDS ORDERED: LEVE5MLUD PO (11:43)
[2022-09-09] MEDS ORDERED: LIPITOR40 MG PO (11:44)
[2022-09-09 15:24] VITALS: BP 171/78; TEMP 98.9
[2022-09-09 19:24] VITALS: BP 176/78; TEMP 99.6
== END 2022-09-09 22:20 | disposition short-term general hospital (02) ==
LOC: ED 15:54 → MED/SURG 19:00
PROVIDERS: ADMIT Emergency Medicine; ATTEND Internal Medicine
DX: R07.89 Other chest pain (principal); E78.49 Other hyperlipidemia; Z86.73 Personal history of transient ischemic attack (TIA), and cerebral infarction without residual deficits; M15.8 Other polyosteoarthritis; M41.80 Other forms of scoliosis, site unspecified; G40.802 Other epilepsy, not intractable, without status epilepticus; K21.9 Gastro-esophageal reflux disease without esophagitis; E87.6 Hypokalemia; E11.22 Type 2 diabetes mellitus with diabetic chronic kidney disease; E11.65 Type 2 diabetes mellitus with hyperglycemia; I13.0 Hypertensive heart and chronic kidney disease with heart failure and stage 1 through stage 4 chronic kidney disease, or unspecified chronic kidney disease; N18.32 Chronic kidney disease, stage 3b; I50.9 Heart failure, unspecified
CPT/HCPCS: 36415; 80053; 81002; 82550; 83880; 84484; 85027; 85610; 85730; 87502; 87635; 93005; 96365; 96366; 96372; 96374; 96375; 99220; 99284; G0378; J1650; J1940; J2060; J2270; U0003

== ENCOUNTER 2022-10-23 09:19 | Inpatient (IN) | payer OTHER ==
[~2022-10-23] VITALS: Ht 167.6 cm; Wt 60.4 kg
[~2022-10-23 09:19] MED LIST changes: +LIPITOR40 MG PO; +VIMPAT50 MG PO
[2022-10-23 11:49] VITALS: BP 175/88; TEMP 97.5; Ht 167.6 cm; Wt 60.4 kg
[2022-10-23 20:00] VITALS: BP 177/85; TEMP 98.5
[2022-10-24 08:00] VITALS: BP 150/73; TEMP 98.7
[2022-10-24 19:32] VITALS: BP 173/83; TEMP 98.4
[2022-10-25 07:49] VITALS: BP 175/94; TEMP 97
[2022-10-25 20:00] VITALS: BP 173/88; TEMP 99.6
[2022-10-26 08:00] VITALS: BP 162/75; TEMP 99.8
[2022-10-26 20:00] VITALS: BP 169/76; TEMP 99.3
[2022-10-27 08:00] VITALS: BP 179/87; TEMP 96.6
== END 2022-10-27 10:05 | disposition home health service (06) | DRG 292 ==
LOC: MED/SURG 09:19
PROVIDERS: ADMIT Internal Medicine; ATTEND Internal Medicine
DX: I50.9 Heart failure, unspecified (principal); G40.802 Other epilepsy, not intractable, without status epilepticus; I51.9 Heart disease, unspecified; E11.22 Type 2 diabetes mellitus with diabetic chronic kidney disease; I12.9 Hypertensive chronic kidney disease with stage 1 through stage 4 chronic kidney disease, or unspecified chronic kidney disease; N18.9 Chronic kidney disease, unspecified; F32.89 Other specified depressive episodes